=== PATIENT | male | born 1945 | race Caucasian/White ===

== ENCOUNTER 2017-02-08 20:22 | Observation (INO) ==
[2017-02-08] MEDS ORDERED: IOPAMIDOL 100 ML BOTTLE IV ONE (20:23)
[2017-02-08] MEDS ORDERED: METOPROLOL TARTRATE 5 MG/5 ML VIAL IV ONE (20:26)
[2017-02-08] MEDS ORDERED: ONDANSETRON 4 MG/2 ML VIAL IV ONE (20:26)
[2017-02-08] MEDS ORDERED: ASPIRIN 81 MG TAB.CHEW CHEWED ONE (20:26)
[2017-02-08] MEDS: 0.9 % SODIUM CHLORIDE 1,000 ML IV ONE ×2 (20:30→21:03)
[2017-02-08] MEDS ORDERED: MIDAZOLAM 2 MG/2 ML VIAL ONE (20:32)
[2017-02-08] MEDS ORDERED: fentaNYL 100 MCG/2 ML VIAL IV ONE ×2 (20:32→21:18)
[2017-02-08] MEDS ORDERED: DILTIAZEM 25 MG/5 ML VIAL IV ONE ×2 (20:49)
[2017-02-08] MEDS ORDERED: DILTIAZEM 125 MG in 0.9 % SODIUM CHLORIDE 100 ML IV SCH (21:00)
[2017-02-08 21:04] LABS: Basophils # (Auto) 0 K/mcL (0.0-0.3); Basophils % (Auto) 0.3 % (0.0-2.0); Eosinophils # (Auto) 0.2 K/mcL (0.0-0.7); Eosinophils % (Auto) 2.1 % (0.0-7.0); Granulocytes % (Auto) 54.4 % (38.0-78.0); Lymphocytes # (Auto) 3.6 K/mcL (1.5-4.8); Lymphocytes % (Auto) 35.6 % (15.5-49.0); Mean Cell Volume 85.9 fL (80.0-100.0); Mean Corpuscular Hemoglobin 29.2 pg (26.0-34.0); Monocytes # (Auto) 0.8 K/mcL (0.1-0.9); Monocytes % (Auto) 7.6 % (1.0-12.0); Platelet Count 284 K/mcL (140-440); RBC 4.86 M/mcL (4.50-5.90); Red Cell Distribution Width 11.9 % (11.5-14.5)
[2017-02-08] MEDS ORDERED: 0.9 % SODIUM CHLORIDE 1,000 ML IV ONE (21:14)
[2017-02-08] MEDS ORDERED: INSULIN REGULAR, HUMAN 1 UNIT/0.01 ML UNIT IV ONE ×3 (21:14→23:00)
[2017-02-08] MEDS ORDERED: PROPOFOL 200 MG/20 ML VIAL IV ONE (21:15)
[2017-02-08] MEDS ORDERED: MIDAZOLAM 5 MG/5 ML VIAL IV ONE (21:18)
[2017-02-08 21:25] LABS: Creatine Kinase MB 2.6 ng/ml (0-4.9); Myoglobin 42 ng/ml (28-72)
[2017-02-08 21:27] LABS: ALT/SGPT 16 U/l (0-40); Albumin 3.9 gm/dL (3.2-5.2); Albumin/Globulin Ratio 1.6 (1.0-2.3); Alkaline Phosphatase 101 U/L (39-117); Blood Urea Nitrogen 23 mg/dl (8-23); Creatine Kinase 91 IU/L (24-195); Lipase 103 U/L (7-60)
--- NOTE | 2017-02-08 21:32 | Emergency Department Note ---
Chest Pain HPI - General Chief Complaint: Chest Pain Stated Complaint: Chest pain/rapid hr Time Seen by Provider: 02/08/17 20:26 Source: patient, family Mode of arrival: ambulatory Limitations: no limitations - History of Present Illness HPI Narrative: 71-year-old male with a 1 hour history of racing heart shortness of breath fatigue and chest pressure like a constriction around his chest. No history of previous atrial fibrillation but he does report a much milder episode last night lasted much more briefly and then went away. He took a full aspirin both yesterday and today. He does have sleep apnea but does not use his CPAP now for about 9 months. His diabetes has been much more poorly controlled with sugars over 200 lately for unclear reasons. He has some peripheral neuropathy from this. - Related Data Home Medications Medication Instructions Recorded Confirmed metFORMIN HCL [Metformin HCl ER] 500 mg PO BID 12/19/15 12/19/15 Previous Rx's Medication Instructions Recorded HYDROcodone/APAP 5/325MG [[place] 1 - 2 tab PO Q4HP PRN #20 tablet 12/19/15 5/325Mg] Allergies Allergy/AdvReac Type Severity Reaction Status Date / Time No Known Drug Allergies Allergy Verified 02/08/17 20:22 Review of Systems All systems ED: reviewed and negative except as stated. Chest Pain PMH - Past Medical History Attestation: Yes: The following information was validated with the patient. Medical history: Reports: diabetes, other (Sleep apnea) Surgical history ED: Reports: cholecystectomy, orthopedic, other (ankle), other (cyst drained from kidney) Prior Cardiac Testing/Procedures: Echocardiogram, Stress Test (echo and stress test at [facility]) - Social History smoking status: Never smoker Alcohol use: Reports: Rarely Drug use: Reports: none Physical Exam Overweight male in some acute distress secondary to racing heart-heart rate 175 on initial eval. slightly diaphoretic with some shortness of breath. Better with reclining rest. Diaphoretic. Normocephalic atraumatic. Conjunctive are bilaterally injected and icteric. No nasal discharge or congestion. Oropharynx is pink and moist. Mallampati 4. Large neck but no carotid bruit. No lymphadenopathy. Supple. I cannot feel the thyroid. Heart is irregularly irregular rhythm racing tachycardic. Lungs are clear to auscultation bilaterally without wheezes rales rhonchi or respiratory distress. Abdomen soft nontender nondistended. No pedal edema. +2 radial pulse bounding. Alert oriented able to answer questions appropriately After spontaneous cardioversion on Cardizem drip (after failed electrical cardioversion) he was feeling much better and did not recall earlier events - General Limitations: no limitations Course Vital Signs Temperature 97.5 F 02/08/17 20:22 Pulse Rate 170 H 02/08/17 20:22 Respiratory Rate 18 02/08/17 20:22 Blood Pressure 157/122 02/08/17 20:22 Pulse Oximetry (%) 96 02/08/17 20:22 Temperature 97.5 F 02/08/17 20:22 Pulse Rate 81 02/09/17 00:23 Respiratory Rate 13 02/09/17 00:23 Blood Pressure 135/68 02/09/17 00:16 Pulse Oximetry (%) 97 02/09/17 00:23 Procedures - Cardioversion Pre-Shock Diagnosis: Atrial fibrillation with rapid ventricular response-new onset and unstable Post-Shock Diagnosis: Atrial fibrillation with rapid ventricular response Sedation performed by: ED Provider Joules - First Synchronized Shock: 50 Joules - Second Synchronized Shock: 125 (Electrocardioversion unsuccessful) - Procedural Sedation Indication: other (Electrocardioversion) Presedation Evaluation: yes- see exam ASA Class: II Time of Last PO Intake: 03:30 (About 5 hours prior to arrival) Preparation: cardiac catheterization technician applied, pulse oximeter, supplemental O2 applied, reversal agents at bedside, suction/airway equipment at bedside, IV secured Fentanyl: IV Fentanyl Dose: 1 (100 mcg) Midazolam: IV Midazolam Dose: 3 IV Propofol Dose (mgs): 50 Patient Tolerated Procedure: well, no complications Complications: none Interventions: oxygen applied Chest Pain - Lab Data Lab results reviewed: Yes I reviewed the patient's lab results. Result diagrams: 02/08/17 20:30 02/08/17 20:30 Lab Results 02/08/17 02/08/17 02/08/17 Range/Units 20:30 20:30 20:30 WBC 10.0 (4.5-11.0) K/mcL RBC 4.86 (4.50-5.90) M/mcL Hgb 14.2 (13.5-16.5) g/dL Hct 41.7 (41.0-55.0) % POC Hct 43.0 (41.0-55.0) % MCV 85.9 (80.0-100.0) fL MCH 29.2 (26.0-34.0) pg MCHC 34.0 (31.0-36.0) g/dL RDW 11.9 (11.5-14.5) % Plt Count 284 (140-440) K/mcL MPV 8.7 (7.4-10.4) fL Gran % 54.4 (38.0-78.0) % Lymph % (Auto) 35.6 (15.5-49.0) % Coleman % (Auto) 7.6 (1.0-12.0) % Eos % (Auto) 2.1 (0.0-7.0) % Baso % (Auto) 0.3 (0.0-2.0) % Gran # 5.4 (1.8-8.0) K/mcL Lymph # (Auto) 3.6 (1.5-4.8) K/mcL Coleman # (Auto) 0.8 (0.1-0.9) K/mcL Eos # (Auto) 0.2 (0.0-0.7) K/mcL Baso # (Auto) 0 (0.0-0.3) K/mcL POC Sodium 136 (133-145) mmol/L Sodium 135 (133-145) mmol/L POC Potassium 3.6 (3.3-5.1) mmol/L Potassium 3.6 (3.3-5.1) mmol/L POC Chloride 100 (96-108) mmol/L Chloride 96 (96-108) mmol/L Carbon Dioxide 21 L (22-30) mmol/L POC Total CO2 23 (22-30) mmol/L Anion Gap 18.0 H (8-16) POC BUN 26 H (8-23) mg/dl BUN 23 (8-23) mg/dl Creatinine 1.0 (0.7-1.2) mg/dl POC Creatinine 1.0 (0.7-1.2) mg/dl GFR Calculation 74 Glucose 390 H (70-105) mg/dL POC Glucose 381 H (70-105) mg/dL Hemoglobin A1c (4.0-6.0) % HGB Estim Average Glucose mg/dL Calcium 9.0 (8.6-10.4) mg/dl POC WB Ioniz Calcium 1.16 (1.16-1.32) mmol/L Magnesium (1.6-2.5) mg/dL Total Bilirubin 0.3 (0.0-1.0) mg/dL AST 13 (0-37) U/l ALT 16 (0-40) U/l Alkaline Phosphatase 101 (39-117) U/L Total Creatine Kinase 91 (24-195) IU/L CK-MB (CK-2) 2.6 (0-4.9) ng/ml Myoglobin 42 (28-72) ng/ml Troponin T < 0.01 (0-0.03) ng/ml Total Protein 6.4 (5.9-8.4) gm/dL Albumin 3.9 (3.2-5.2) gm/dL Globulin 2.5 (2.2-3.7) gm/dL Albumin/Globulin Ratio 1.6 (1.0-2.3) Lipase 103 H (7-60) U/L TSH (0.27-5.01) uIU/ml 02/08/17 02/08/17 02/08/17 Range/Units 20:30 20:30 23:45 WBC (4.5-11.0) K/mcL RBC (4.50-5.90) M/mcL Hgb (13.5-16.5) g/dL Hct (41.0-55.0) % POC Hct 37.0 L (41.0-55.0) % MCV (80.0-100.0) fL MCH (26.0-34.0) pg MCHC (31.0-36.0) g/dL RDW (11.5-14.5) % Plt Count (140-440) K/mcL MPV (7.4-10.4) fL Gran % (38.0-78.0) % Lymph % (Auto) (15.5-49.0) % Coleman % (Auto) (1.0-12.0) % Eos % (Auto) (0.0-7.0) % Baso % (Auto) (0.0-2.0) % Gran # (1.8-8.0) K/mcL Lymph # (Auto) (1.5-4.8) K/mcL Coleman # (Auto) (0.1-0.9) K/mcL Eos # (Auto) (0.0-0.7) K/mcL Baso # (Auto) (0.0-0.3) K/mcL POC Sodium 137 (133-145) mmol/L Sodium (133-145) mmol/L POC Potassium 3.9 (3.3-5.1) mmol/L Potassium (3.3-5.1) mmol/L POC Chloride 102 (96-108) mmol/L Chloride (96-108) mmol/L Carbon Dioxide (22-30) mmol/L POC Total CO2 23 (22-30) mmol/L Anion Gap (8-16) POC BUN 24 H (8-23) mg/dl BUN (8-23) mg/dl Creatinine (0.7-1.2) mg/dl POC Creatinine 0.8 (0.7-1.2) mg/dl GFR Calculation Glucose (70-105) mg/dL POC Glucose 273 H (70-105) mg/dL Hemoglobin A1c 8.5 H (4.0-6.0) % HGB Estim Average Glucose 197 mg/dL Calcium (8.6-10.4) mg/dl POC WB Ioniz Calcium 1.11 L (1.16-1.32) mmol/L Magnesium 1.6 (1.6-2.5) mg/dL Total Bilirubin (0.0-1.0) mg/dL AST (0-37) U/l ALT (0-40) U/l Alkaline Phosphatase (39-117) U/L Total Creatine Kinase (24-195) IU/L CK-MB (CK-2) (0-4.9) ng/ml Myoglobin (28-72) ng/ml Troponin T (0-0.03) ng/ml Total Protein (5.9-8.4) gm/dL Albumin (3.2-5.2) gm/dL Globulin (2.2-3.7) gm/dL Albumin/Globulin Ratio (1.0-2.3) Lipase (7-60) U/L TSH 2.52 (0.27-5.01) uIU/ml 02/08/17 Range/Units 23:45 WBC (4.5-11.0) K/mcL RBC (4.50-5.90) M/mcL Hgb (13.5-16.5) g/dL Hct (41.0-55.0) % POC Hct (41.0-55.0) % MCV (80.0-100.0) fL MCH (26.0-34.0) pg MCHC (31.0-36.0) g/dL RDW (11.5-14.5) % Plt Count (140-440) K/mcL MPV (7.4-10.4) fL Gran % (38.0-78.0) % Lymph % (Auto) (15.5-49.0) % Coleman % (Auto) (1.0-12.0) % Eos % (Auto) (0.0-7.0) % Baso % (Auto) (0.0-2.0) % Gran # (1.8-8.0) K/mcL Lymph # (Auto) (1.5-4.8) K/mcL Coleman # (Auto) (0.1-0.9) K/mcL Eos # (Auto) (0.0-0.7) K/mcL Baso # (Auto) (0.0-0.3) K/mcL POC Sodium (133-145) mmol/L Sodium (133-145) mmol/L POC Potassium (3.3-5.1) mmol/L Potassium (3.3-5.1) mmol/L POC Chloride (96-108) mmol/L Chloride (96-108) mmol/L Carbon Dioxide (22-30) mmol/L POC Total CO2 (22-30) mmol/L Anion Gap (8-16) POC BUN (8-23) mg/dl BUN (8-23) mg/dl Creatinine (0.7-1.2) mg/dl POC Creatinine (0.7-1.2) mg/dl GFR Calculation Glucose (70-105) mg/dL POC Glucose (70-105) mg/dL Hemoglobin A1c (4.0-6.0) % HGB Estim Average Glucose mg/dL Calcium (8.6-10.4) mg/dl POC WB Ioniz Calcium (1.16-1.32) mmol/L Magnesium (1.6-2.5) mg/dL Total Bilirubin (0.0-1.0) mg/dL AST (0-37) U/l ALT (0-40) U/l Alkaline Phosphatase (39-117) U/L Total Creatine Kinase (24-195) IU/L CK-MB (CK-2) (0-4.9) ng/ml Myoglobin (28-72) ng/ml Troponin T < 0.01 (0-0.03) ng/ml Total Protein (5.9-8.4) gm/dL Albumin (3.2-5.2) gm/dL Globulin (2.2-3.7) gm/dL Albumin/Globulin Ratio (1.0-2.3) Lipase (7-60) U/L TSH (0.27-5.01) uIU/ml - Radiology Data Radiology results reviewed: Yes I reviewed the patient's radiology results. CT angiogram of the chest was read as normal - EKG Data EKG attestation: Yes I reviewed and interpreted this EKG. EKG results narrative: First EKG shows rate of 165 with atrial fibrillation RVR repolarization abnormalities. After synchronized cardioversion with 50 J EKG #2 shows a rate of 164 again with atrial fibrillation and rapid ventricular response After synchronized cardioversion #2 with 125 J EKG #3 continues to show atrial fibrillation with rapid ventricular response Spontaneous cardioversion on EKG #4 with normal sinus rhythm rate of 85 Q waves in V2 and III at 9:25 PM-this was after starting Cardizem drip Disposition Pt seen by RING CUTTER LATHE OPERATOR/PA only: No Clinical Impression: Atrial fibrillation with rapid ventricular response Chest pain Qualifiers: Chest pain type: unspecified Qualified Code(s): R07.9 - Chest pain, unspecified Hyperglycemia due to type 2 diabetes mellitus Qualifiers: Diabetes mellitus improvement coordinator insulin use: without halfway use Qualified Code(s ): E11.65 - Type 2 diabetes mellitus with hyperglycemia Summary: Patient was seen initially brought back secondary to chest pain/pressure with shortness of breath, mild diaphoresis and tachycardia. Found to have atrial fibrillation with rapid ventricular response. Because of instability and new onset in the last hour cardioversion was undertook. He was given metoprolol 5 mg while we were preparing with no effect. synchronized electrical cardioversion under procedural sedation was unsuccessful 2. So Cardizem drip was started. He spontaneously converted sometime after this approximately 9:25 PM Laboratory workup and CT angiogram were ordered He was given 5 units of regular insulin for elevated glucose. A1c was ordered- 8.5. he was given another 3 units of IV insulin. See nursing notes for Accu-Chek 's Discussed his case with Dr. Pyle the web ui designer hotel controller at [facility]. he felt that this could be managed here and patient should be anticoagulated. we repeated his chemistry with a Chem-8 and checked a repeat troponin which was negative The case was also discussed with Dr. Bustos agreed to accept the patient for further care and evaluation. Lovenox was ordered 1 mg/kg for anticoagulation Disposition: Xfer As Inpt ([facility]) Condition: Fair Referrals: Abelardo Gary DO [Primary Care Provider] -
--- NOTE | 2017-02-08 21:53 | Emergency Department Note ---
Chest Pain HPI - General Chief Complaint: Chest Pain Stated Complaint: Chest pain/rapid hr Time Seen by Provider: 02/08/17 20:26 Source: patient, family Mode of arrival: ambulatory Limitations: no limitations - Related Data Home Medications Medication Instructions Recorded Confirmed metFORMIN HCL [Metformin HCl ER] 500 mg PO BID 12/19/15 12/19/15 Previous Rx's Medication Instructions Recorded HYDROcodone/APAP 5/325MG [[place] 1 - 2 tab PO Q4HP PRN #20 tablet 12/19/15 5/325Mg] Allergies Allergy/AdvReac Type Severity Reaction Status Date / Time No Known Drug Allergies Allergy Verified 02/08/17 20:22 Chest Pain PMH - Past Medical History Medical history: Reports: diabetes, other (Sleep apnea) Prior Cardiac Testing/Procedures: Echocardiogram, Stress Test (echo and stress test at [facility]) - Social History smoking status: Never smoker Alcohol use: Reports: Rarely Drug use: Reports: none Physical Exam - General Limitations: no limitations Course Course Narrative: I assisted in the cardioversion by giving the synchronized shocks. We gave one shock at 50J with no results. We gave more sedation and gave a shock of 125J with conversion for about 3 seconds. After that he was started on a Cardizem drip. Vital Signs Temperature 97.5 F 02/08/17 20:22 Pulse Rate 170 H 02/08/17 20:22 Respiratory Rate 18 02/08/17 20:22 Blood Pressure 157/122 02/08/17 20:22 Pulse Oximetry (%) 96 02/08/17 20:22 Temperature 97.5 F 02/08/17 20:22 Pulse Rate 86 02/08/17 21:36 Respiratory Rate 17 02/08/17 21:41 Blood Pressure 114/97 02/08/17 21:41 Pulse Oximetry (%) 95 02/08/17 21:36 Chest Pain - Lab Data Result diagrams: 02/08/17 20:30 02/08/17 20:30 Lab Results 02/08/17 02/08/17 02/08/17 Range/Units 20:30 20:30 20:30 WBC 10.0 (4.5-11.0) K/mcL RBC 4.86 (4.50-5.90) M/mcL Hgb 14.2 (13.5-16.5) g/dL Hct 41.7 (41.0-55.0) % POC Hct 43.0 (41.0-55.0) % MCV 85.9 (80.0-100.0) fL MCH 29.2 (26.0-34.0) pg MCHC 34.0 (31.0-36.0) g/dL RDW 11.9 (11.5-14.5) % Plt Count 284 (140-440) K/mcL MPV 8.7 (7.4-10.4) fL Gran % 54.4 (38.0-78.0) % Lymph % (Auto) 35.6 (15.5-49.0) % Desha % (Auto) 7.6 (1.0-12.0) % Eos % (Auto) 2.1 (0.0-7.0) % Baso % (Auto) 0.3 (0.0-2.0) % Gran # 5.4 (1.8-8.0) K/mcL Lymph # (Auto) 3.6 (1.5-4.8) K/mcL Desha # (Auto) 0.8 (0.1-0.9) K/mcL Eos # (Auto) 0.2 (0.0-0.7) K/mcL Baso # (Auto) 0 (0.0-0.3) K/mcL POC Sodium 136 (133-145) mmol/L Sodium 135 (133-145) mmol/L POC Potassium 3.6 (3.3-5.1) mmol/L Potassium 3.6 (3.3-5.1) mmol/L POC Chloride 100 (96-108) mmol/L Chloride 96 (96-108) mmol/L Carbon Dioxide 21 L (22-30) mmol/L POC Total CO2 23 (22-30) mmol/L Anion Gap 18.0 H (8-16) POC BUN 26 H (8-23) mg/dl BUN 23 (8-23) mg/dl Creatinine 1.0 (0.7-1.2) mg/dl POC Creatinine 1.0 (0.7-1.2) mg/dl GFR Calculation 74 Glucose 390 H (70-105) mg/dL POC Glucose 381 H (70-105) mg/dL Calcium 9.0 (8.6-10.4) mg/dl POC WB Ioniz Calcium 1.16 (1.16-1.32) mmol/L Total Bilirubin 0.3 (0.0-1.0) mg/dL AST 13 (0-37) U/l ALT 16 (0-40) U/l Alkaline Phosphatase 101 (39-117) U/L Total Creatine Kinase 91 (24-195) IU/L CK-MB (CK-2) 2.6 (0-4.9) ng/ml Myoglobin 42 (28-72) ng/ml Troponin T < 0.01 (0-0.03) ng/ml Total Protein 6.4 (5.9-8.4) gm/dL Albumin 3.9 (3.2-5.2) gm/dL Globulin 2.5 (2.2-3.7) gm/dL Albumin/Globulin Ratio 1.6 (1.0-2.3) Lipase 103 H (7-60) U/L Disposition Pt seen by MATERNAL FETAL PHYSICIAN/PA only: No Clinical Impression: Atrial fibrillation with rapid ventricular response Chest pain Qualifiers: Chest pain type: unspecified Qualified Code(s): R07.9 - Chest pain, unspecified Hyperglycemia due to type 2 diabetes mellitus Qualifiers: Diabetes mellitus moth exterminator insulin use: without retirement use Qualified Code(s ): E11.65 - Type 2 diabetes mellitus with hyperglycemia Referrals: Abelardo Gary DO [Primary Care Provider] -
[2017-02-08 23:55] LABS: Hemoglobin A1C 8.5 % HGB (4.0-6.0)
[2017-02-09 00:48] LABS: Magnesium 1.6 mg/dL (1.6-2.5)
[2017-02-09] MEDS ORDERED: IOPAMIDOL 150 ML BOTTLE IJ ONE (01:26)
[2017-02-09] MEDS ORDERED: IPRATROPIUM/ALBUTEROL 3 ML AMPUL.NEB NEB PRN (01:37)
[2017-02-09] MEDS ORDERED: MAGNESIUM SULFATE 2 GM/50 ML BAG IV ONE ×2 (01:37→02:09)
[2017-02-09] MEDS ORDERED: DEXTROSE 31 GM ORAL.SUSP PO PRN (01:37)
[2017-02-09] MEDS ORDERED: ONDANSETRON 4 MG/2 ML VIAL IV PRN (01:37)
[2017-02-09] MEDS ORDERED: ACETAMINOPHEN 325 MG TABLET PO PRN (01:37)
[2017-02-09] MEDS ORDERED: HYDROcodone/APAP 5/325MG TABLET PO PRN (01:37)
[2017-02-09] MEDS ORDERED: NALOXONE HCL 0.4 MG/ML VIAL IV PRN (01:37)
[2017-02-09] MEDS ORDERED: METOPROLOL TARTRATE 5 MG/5 ML VIAL IV PRN (01:37)
[2017-02-09] MEDS ORDERED: DEXTROSE 50% 50 ML VIAL IV PRN (01:37)
[2017-02-09] MEDS ORDERED: ENOXAPARIN 40 MG/0.4 ML SYRINGE ONE (01:52)
[2017-02-09] MEDS ORDERED: ENOXAPARIN 100 MG/ML SYRINGE ONE (01:52)
--- NOTE | 2017-02-09 02:23 | Internal Med History&Physical ---
Medical - H&P: HPI Patient information: Note initiated : 02/09/17 at 2:18 am Service Date, if different from initiated Date: [] Patient: Chico Brown a 71 y/o M admitted on 02/09/17 for Chest pain/rapid hr. Chief Complaint: [] History of present illness: Mr. Brown is a 71 year old Male with h/o DM, obesity and KELLY presented to the ER with complaitns of chest pain and tightness Patient was watching tv when he had sundden onset chest tightness, retrosternal , some preessure and pain between the shoulder blades. He noted that his heart was erratic, the aptient took the Heart rate and his pulse was high and erratic, the patient symptoms was accopanied by light headness, he was flushed and mildly nauseaus. The patient therefore presented to the ER for further management In the ER he was noted to be in afib with rvr, he was given cardizem and cardioverted x 2. After which he was placed on cardizem drip. The patietn then resverted back to sinus rhythm. 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 Cardiology at [facility] was called who advised that patient be monitored here and that there was no indication for transfer. The patient was therefore admitted to the hospital for further management. The patient has h/o cardaic murmur and has a neg stress test 2 yrs ago as per him. 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, lives with Medical - H&P: Meds Home Medications Medication Instructions Recorded Confirmed Type HYDROcodone/APAP 5/325MG [[place] 1 - 2 tab PO Q4HP PRN #20 tablet 12/19/15 Rx 5/325Mg] metFORMIN HCL [Metformin HCl ER] 500 mg PO BID 12/19/15 02/09/17 History Allergies Allergy/AdvReac Type Severity Reaction Status Date / Time No Known Drug Allergies Allergy Verified 02/08/17 20:22 Medical - H&P: Exam - Constitutional Vitals: Temp Pulse Resp BP Pulse Ox 97.5 F 81 13 135/68 97 02/09/17 01:36 02/09/17 01:36 02/09/17 01:36 02/09/17 01:36 02/09/17 01:36 Exam: GENERAL: The patient is a well-developed, well-nourished in no apparent distress. Is alert and oriented x3. obese VITAL SIGNS: Reviewed and as noted elsewhere. HEENT: Head is normocephalic and atraumatic. Extraocular muscles are intact. Pupils are equal, round, and reactive to light. Nares appeared normal. Mouth appears any without lesions. Mucous membranes are moist. NECK: Normal to inspection, Supple, No lymphadenopathy or thyromegaly. LUNGS: Air entry equal on both sides, no wheezing, crackles or rhonchi noted. No accessory muscles of respiration HEART: Regular rate and rhythm normal, S1 and S2 heard, no Gallop, S3 or Rub Noted, systolic murmur 3/6 in the aortic region. ABDOMEN: Soft, nontender, and nondistended. Positive bowel sounds. No hepatosplenomegaly was noted. large pannus EXTREMITIES: No cyanosis, clubbing, rash, lesions or edema. NEUROLOGIC: Cranial nerves II through XII are grossly intact. Motor and Sensory System Grossly Intact PSYCHIATRIC: Normal affect, Normal Mood. Appropriate Behavior. SKIN: No ulceration or wounds noted, No jaundice, No rash noted. Medical - H&P: Reslt - Labs CBC & Chem 7: 02/08/17 20:30 02/08/17 20:30 Labs: Short CBC 02/08/17 Range/Units 20:30 WBC 10.0 (4.5-11.0) K/mcL Hgb 14.2 (13.5-16.5) g/dL Hct 41.7 (41.0-55.0) % Plt Count 284 (140-440) K/mcL BMP 02/08/17 20:30 Sodium 135 Potassium 3.6 Chloride 96 Carbon Dioxide 21 L BUN 23 Creatinine 1.0 Glucose 390 H Calcium 9.0 Cardiac Enzymes 02/08/17 02/08/17 02/08/17 Range/Units 20:30 20:30 23:45 Total Creatine Kinase 91 (24-195) IU/L CK-MB (CK-2) 2.6 (0-4.9) ng/ml Troponin T < 0.01 < 0.01 (0-0.03) ng/ml Liver Function 02/08/17 Range/Units 20:30 Total Bilirubin 0.3 (0.0-1.0) mg/dL AST 13 (0-37) U/l ALT 16 (0-40) U/l Alkaline Phosphatase 101 (39-117) U/L Albumin 3.9 (3.2-5.2) gm/dL Medical - H&P: A/P - Narrative A/P Narrative: A/P Afib with rvr DM morbid obesity KELLY Hypomagnesemia Plan Admit to tele, obs status IV cardizem drip for now start on lovenox sq bid. consider eliquis at discharge. (Major risks benefits of the medication discussed, all questions answered.) Get echo start on metoprolol orally in AM and d/c drip once hr remains stable overnight. check a1c, sliding scale insulin for now, hold metformin. check lipid panel replace mg to keep mg >2.0, and K > 4.0 trend trop again in AM DVT on therapeutic anticoagulation Cardiac diabetic diet Full code.
[2017-02-09 05:56] LABS: Basophils # (Auto) 0 K/mcL (0.0-0.3); Basophils % (Auto) 0.6 % (0.0-2.0); Eosinophils # (Auto) 0.3 K/mcL (0.0-0.7); Eosinophils % (Auto) 3.1 % (0.0-7.0); Granulocytes % (Auto) 49.3 % (38.0-78.0); Lymphocytes # (Auto) 3.5 K/mcL (1.5-4.8); Lymphocytes % (Auto) 39.6 % (15.5-49.0); Mean Cell Volume 87.7 fL (80.0-100.0); Mean Corpuscular Hemoglobin 29.8 pg (26.0-34.0); Monocytes # (Auto) 0.7 K/mcL (0.1-0.9); Monocytes % (Auto) 7.4 % (1.0-12.0); Platelet Count 235 K/mcL (140-440); RBC 4.36 M/mcL (4.50-5.90); Red Cell Distribution Width 12.6 % (11.5-14.5)
[2017-02-09 06:50] LABS: ALT/SGPT 13 U/l (0-40); Albumin 3.4 gm/dL (3.2-5.2); Albumin/Globulin Ratio 1.5 (1.0-2.3); Alkaline Phosphatase 80 U/L (39-117); Bilirubin,Direct < 0.2 mg/dL (0.0-0.3); Blood Urea Nitrogen 22 mg/dl (8-23); Gamma Glutamyl Transpeptidase 27 U/L (8-61); HDL Cholesterol 42 mg/dl (>40); LDL Cholesterol,Calculated 93 mg/dl (SEE CHART); Magnesium 2.3 mg/dL (1.6-2.5); Uric Acid 3.9 mg/dL (2.5-8.0)
--- NOTE | 2017-02-09 07:42 | Cat Scan Report ---
CLINICAL INFORMATION: Chest pain COMPARISON: None. TECHNIQUE: 80 cc of Isovue-300 were injected intravenously, and 25 seconds later, 2.5 mm helical slices were obtained from the lung apices through the bases. Following reconstruction, 2.5 mm sagittal, coronal and axial reformations were processed and reviewed at lung, mediastinal and bone windows. 7 mm axial MIPS were also obtained FINDINGS: Pulmonary parenchymal windows show focal scarring in the anterior basilar segment of the left lower lobe and in the right middle lobe. There are no nodules or infiltrates. No effusions. Mediastinal windows show the thoracic aorta and pulmonary arteries are normal in contour and caliber. There is no adenopathy in the mediastinal, hilar or axillary regions. Small amounts of calcification is seen within the aortic valve. The heart is normal in size. There is moderate lipomatous infiltration of the interatrial septum which has increased from [address] Esophagus is unremarkable. Bones and soft tissues the chest wall are normal. IMPRESSION: 1. No acute cardiopulmonary disease evident 2. Lipomatous infiltration of the intra-atrial septum which has increased from abdominal CT 2008 Interpreted and Authenticated by: Bud Peng 02/09/17
[2017-02-09] MEDS: INSULIN LISPRO 1 UNIT/0.01 ML UNIT SQ SCH ×4 (08:16→23:07)
[2017-02-09] MEDS: METOPROLOL SUCCINATE 50 MG TAB.XL.24H PO SCH (08:18)
[2017-02-09] MEDS: POTASSIUM CHLORIDE 20 MEQ PACKET PO SCH (08:18)
[2017-02-09] MEDS: ENOXAPARIN 120 MG/0.8 ML SYRINGE SQ SCH ×2 (08:18→23:07)
[2017-02-09] MEDS ORDERED: ENOXAPARIN 120 MG/0.8 ML SYRINGE SQ SCH (09:00)
[2017-02-09] MEDS: DILTIAZEM 125 MG in 0.9 % SODIUM CHLORIDE 100 ML IV SCH ×2 (11:49→23:02)
[2017-02-09] MEDS: DULoxetine 30 MG CAPSULE PO SCH (12:22)
[2017-02-09 19:13] LABS: Appearance,Urine CLEAR; Bacteria,Urine 0 /hpf (0); Bilirubin,Urine NEG (NEG); Color,Urine YELLOW; Glucose,Urine (UA) >=500 mg/dL (NEG); Leukocyte Esterase,Urine NEG /uL (NEG); Mucus,Urine FEW /hpf (0); Nitrate,Urine NEG (NEG); Protein,Urine NEG (NEG); Specific Gravity,Urine 1.021 (1.000-1.035); Urine Blood >=1.0 mg/dL (<0.03); Urine RBC 86 /hpf (0-1); Urine Squamous Epithelial Cell < 1 /hpf (0-4); Urine WBC 10 /hpf (0-4); Urobilinogen,Urine NEG (NEG)
--- NOTE | 2017-02-09 19:39 | Ultrasound Report ---
CLINICAL INFORMATION: Hematuria COMPARISON: Abdomen CT from 06/23/2007 and renal ultrasound from 07/04/2015 FINDINGS: Both kidneys are moderately enlarged, but unchanged in size: The right is 14.8 x 6 cm and the left is 12 x 5.6 cm. Renal echotexture is normal. Multiple cysts widely disseminated throughout both kidneys, ranging up to 10.7 cm in the lateral right kidney, show modest increase in size since the 2016 renal ultrasound. There is a 2 cm hyperechoic lesion in the lateral inferior pole the left kidney which was not seen on previous study. This appears to be either a solid nodule or a complex hemorrhagic cyst. Urinary bladder volume is 186-cc with 20 cc post void residual. Urinary bladder wall is mildly thickened IMPRESSION: 1. 2 cm hyperechoic mass lateral inferior pole the left kidney new from previous ultrasound. This could represent a complex hemorrhagic cyst or even a solid lesion - such as a small renal cell carcinoma. Suggest: CT IVP. If patient cannot tolerate IV iodinated contrast because of elevated creatinine etc., then suggest abdominal MRI 2. Multiple cysts widely disseminated throughout both kidneys ranging up to 10.7 cm in the lateral mid right kidney. Mild increase from the previous study Interpreted and Authenticated by: Bud Peng 02/09/17
[2017-02-10 05:26] LABS: Basophils # (Auto) 0 K/mcL (0.0-0.3); Basophils % (Auto) 0.6 % (0.0-2.0); Eosinophils # (Auto) 0.3 K/mcL (0.0-0.7); Granulocytes % (Auto) 45.8 % (38.0-78.0); Lymphocytes # (Auto) 3.4 K/mcL (1.5-4.8); Lymphocytes % (Auto) 42.5 % (15.5-49.0); Mean Cell Volume 87.6 fL (80.0-100.0); Mean Corpuscular Hemoglobin 29.8 pg (26.0-34.0); Monocytes # (Auto) 0.6 K/mcL (0.1-0.9); Monocytes % (Auto) 7.1 % (1.0-12.0); Platelet Count 244 K/mcL (140-440); RBC 4.69 M/mcL (4.50-5.90); Red Cell Distribution Width 12.6 % (11.5-14.5)
[2017-02-10 06:07] LABS: ALT/SGPT 13 U/l (0-40); Albumin 3.5 gm/dL (3.2-5.2); Albumin/Globulin Ratio 1.4 (1.0-2.3); Alkaline Phosphatase 67 U/L (39-117); Bilirubin,Direct < 0.2 mg/dL (0.0-0.3); Blood Urea Nitrogen 15 mg/dl (8-23); Gamma Glutamyl Transpeptidase 27 U/L (8-61); Magnesium 1.9 mg/dL (1.6-2.5); Uric Acid 3.2 mg/dL (2.5-8.0)
[2017-02-10] MEDS: INSULIN LISPRO 1 UNIT/0.01 ML UNIT SQ SCH ×3 (08:57→17:20)
[2017-02-10] MEDS: POTASSIUM CHLORIDE 20 MEQ PACKET PO SCH (08:58)
[2017-02-10] MEDS: ENOXAPARIN 120 MG/0.8 ML SYRINGE SQ SCH (08:58)
[2017-02-10] MEDS: DULoxetine 30 MG CAPSULE PO SCH (08:58)
[2017-02-10] MEDS: METOPROLOL SUCCINATE 50 MG TAB.XL.24H PO SCH (08:58)
[2017-02-10] MEDS ORDERED: PNEUMOCOCCAL 23-VAL P-SAC VAC 0.5 ML VIAL IM ONE (10:00)
[2017-02-10] MEDS ORDERED: FLU VACC QS2017-18 36MOS UP/PF 60 MCG/0.5 ML SYRINGE IM ONE (10:00)
--- NOTE | 2017-02-10 12:14 | Cat Scan Report ---
CLINICAL INFORMATION: Hematuria and renal mass COMPARISON: 06/23/07 FINDINGS: Abdomen was first imaged without oral or intravenous contrast. Nonionic contrast was administered. Venous phase images were acquired from the diaphragm to the symphysis pubis. Sagittal and coronal reformats were created. The liver and spleen are normal in size and homogeneous. The gallbladder has been removed. The bile ducts are nondilated. There is no mass or inflammation in the pancreas. The adrenals are normal. There are multiple simple cysts in both kidneys. The largest is located posterior to the right kidney and measures 7.7 x 8.4 x 10.4 cm. The largest cyst in the left kidney is in the upper pole and measures 5.3 x 6.2 cm. There is also a well-circumscribed fat-containing mass in the cortex posteriorly in the lower pole of the left kidney which measures 1.5 x 1.6 cm. This fat-containing mass has enlarged since 2007. At That time it measured 8.5 mm. The cysts have varied in size. Most of them have enlarged but the dominant cyst in the right kidney has remained stable. No suspicious tumor is seen in either kidney. There is no hemorrhage around the margin of the angiomyolipoma in the left kidney. There is no kidney stone or hydronephrosis. There is duplication of the right renal collecting system. The two ureters join at the ureterovesical junction. The prostate is moderately enlarged and less the bladder from the floor the pelvis. Seminal vesicles appear normal. No mass or intraluminal filling defect is seen within the urinary bladder. Patient has a large network of varicose veins deep in the pelvis. Some of them connect with the splenic vein. No ascites is present. There is no adenopathy. Moderate spinal canal stenosis is present at L4-5 due to degenerative changes. Incidentally noted is a benign lipoma in the left rectus femoris muscle at the level of the groin. 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 There is no associated hemorrhage. No evidence of a renal cell carcinoma or bladder cancer Multiple simple cysts in both kidneys Varicose veins in the pelvis Enlarged prostate Interpreted and Authenticated by: Damien Woodward 02/10/17
[2017-02-10] MEDS: DILTIAZEM 125 MG in 0.9 % SODIUM CHLORIDE 100 ML IV SCH (13:37)
--- NOTE | 2017-02-10 17:52 | Discharge Summary ---
Medical - DS: Prov Patient information: Note initiated : 02/10/17 at 5:49 pm Service Date, if different from initiated Date: [] Patient: Chico Brown 71 y/o M admitted on 02/09/17 for Chest Pain, Rapid HR /AFib with RVR. Chief Complaint: [] Date of admission: 02/09/17 01:25 Discharge date: 02/10/17 Primary care physician: Abelardo Gary Admitting clinician: Jennifer Bustos Consults: 02/08/17 23:42 Consult to Physician [CONS] Stat Comment: Consulting Provider: Jennifer Bustos Reason For Exam: Physician to Consult 02/10/17 10:46 Consult to Physician [CONS] Routine Comment: Consulting Provider: Gaston Cardona Reason For Exam: Physician to Consult Discharging clinician: Jennifer Bustos Medical - DS: Meds - Discharge Medications Prescriptions: Apixaban [Eliquis] 5 mg PO BID #60 tab Metoprolol Succinate [Toprol Xl] 50 mg PO DAILY #30 tab.xl.24h Active and Home Medications: Home Medications HYDROcodone/APAP 5/325MG [[place] 5/325Mg] 1 - 2 tab PO Q4HP PRN #20 tablet [Rx Confirmed 02/09/17 Last Taken Unknown] metFORMIN HCL [Metformin HCl ER] 500 mg PO BID 12/19/15 [History Confirmed 02/09 Last Taken Unknown] DULoxetine HCL [Cymbalta] 60 mg PO DAILY 02/09/17 [History Confirmed 02/09/17 Last Taken Unknown] Medical - DS: Hosp Hospital course: MMr. Brown is a 71 year old Male with h/o DM, obesity and KELLY presented to the ER with complaints of chest pain and tightness, Patient was watching tv when he had sudden onset chest tightness, retrosternal, some pressure and pain between the shoulder blades. He noted that his heart was erratic, the patient's took the Heart rate and his pulse was high and erratic, the patient symptoms was accompanied by light headiness, he was flushed and mildly nauseas. The patient therefore presented to the ER for further management In the ER he was noted to be in afib with rvr, he was given Cardizem and cardioverted x 2. After which he was placed on cardizem ip. The patient then reverted back to sinus rhythm. 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 Cardiology at [facility] was called who advised that patient be monitored here and that there was no indication for transfer. The patient was therefore admitted to the hospital for further management. The patient has h/o cardiac murmur and has a neg stress test 2 yrs ago as per him. in the hospital he was treated with cardizem drip and switched to po metoprolol 50mg sr. He was anticoagulated with lovenox while in the hospital. At the time of discharge he is being sent of eliquis 5mg twice daily TSh was normal The patient has uncontrolled Diabetes, he has been advised to follow up with his pcp for further management. The rest of the stay in the hospital was uneventful, he has been advised to avoid contact sports and high risk activities while on blood thinners. During the hospital stay the patient had some hematuria, USG done which showed that he had cystic kidneys, and possible mass in the left Kidney, CT kidneys show that the mass was a angiolipoma. none the less the patient has blood stained pants, which is unexplained at this time, seen by urology who advised clinic follow up in 1-2 weeks for cystoscopy. Discharge diagnosis: afib new onset. - Time Spent with Patient Total time spent providing and/or coordinating discharge services: Greater than 30 minutes Medical - DS: Exam - Constitutional Vitals: Vital Signs Temp Pulse Resp BP BP BP Pulse Ox 02/10/17 16:00 98.2 F 20 164/92 94 02/10/17 11:08 98.0 F 20 150/90 94 02/10/17 08:00 74 18 145/61 02/10/17 04:00 98.9 F 16 134/71 94 02/09/17 23:32 99.2 F H 66 16 147/90 95 02/09/17 20:00 98.5 F 75 16 162/87 97 02/09/17 18:39 74 95 Intake and Output 02/10/17 02/10/17 02/10/17 05:59 13:59 21:59 Intake Total 200 / 200 1660 / 1660 Output Total 700 / 700 950 / 950 500 / 500 Balance -500 / -500 710 / 710 -500 / -500 Intake: Oral 200 / 200 1660 / 1660 Output: Void Amount 700 / 700 950 / 950 500 / 500 Other: Meal Lunch Percent of Meal Consumed 100% Feeding Ability Independent Additional comments: Constitutional; Afebrile, cooperative, alert, not in distress. Eyes- No icterus, , No periorbital swelling Ears- Ext ear normal, hearing normal to conversation. Neck- Midline trachea, supple Respiratory system: Air Entry equal on both sides, No crackles or wheezing, no rhonchi. CVS- Rate rhythm regular, S1,S2 heard, no gallop, no rub. Abdomen- Soft nontender abdomen, no organomegaly, no tenderness, no guarding or rigidity, [employer]- AOOx3, moving all extremities, no gross focal deficit noted. Medical - DS: Data Procedures and tests throughout hospitalization: CT angio chest IMPRESSION: 1. No acute cardiopulmonary disease evident 2. Lipomatous infiltration of the intra-atrial septum which has increased from abdominal CT 2007 Renal Sonogram IMPRESSION: 1. 2 cm hyperechoic mass lateral inferior pole the left kidney new from previous ultrasound. This could represent a complex hemorrhagic cyst or even a solid lesion - such as a small renal cell carcinoma. Suggest: CT IVP. If patient cannot tolerate IV iodinated contrast because of elevated creatinine etc., then suggest abdominal MRI 2. Multiple cysts widely disseminated throughout both kidneys ranging up to 10.7 cm in the lateral mid right kidney. 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 There is no associated hemorrhage. No evidence of a renal cell carcinoma or bladder cancer Multiple simple cysts in both kidneys Varicose veins in the pelvis Enlarged prostate Labs on day of discharge: Labs from last 24 hours 02/10/17 02/10/17 02/09/17 03:30 03:30 17:13 WBC 8.0 RBC 4.69 Hgb 14.0 Hct 41.1 MCV 87.6 MCH 29.8 MCHC 34.0 RDW 12.6 Plt Count 244 MPV 8.5 Gran % 45.8 Lymph % (Auto) 42.5 Granite % (Auto) 7.1 Eos % (Auto) 4.0 Baso % (Auto) 0.6 Gran # 3.7 Lymph # (Auto) 3.4 Granite # (Auto) 0.6 Eos # (Auto) 0.3 Baso # (Auto) 0 Sodium 140 Potassium 4.1 Chloride 104 Carbon Dioxide 25 Anion Gap 11.0 BUN 15 Creatinine 0.7 GFR Calculation 94 Glucose 183 H Uric Acid 3.2 Calcium 8.6 Phosphorus 3.1 Magnesium 1.9 Total Bilirubin 0.4 Direct Bilirubin < 0.2 GGT 27 AST 12 ALT 13 Alkaline Phosphatase 67 Lactate Dehydrogenase 147 Total Protein 6.0 Albumin 3.5 Globulin 2.5 Albumin/Globulin Ratio 1.4 Triglycerides 144 Urine Color Yellow Urine Appearance Clear Urine pH 5.0 Ur Specific [place] 1.021 Urine Protein Neg Urine Glucose (UA) >=500 A Urine Ketones Neg Urine Occult Blood >=1.0 A Urine Nitrate Neg Urine Bilirubin Neg Urine Urobilinogen Neg Ur Leukocyte Esterase Neg Urine RBC 86 H Urine WBC 10 H Ur Squamous Epith Cells < 1 Urine Bacteria 0 Urine Mucus Few Ur Culture Indicated? Yes Preliminary micro results at discharge 02/09/17 17:31 Urine Culture - Preliminary Urine - Clean Void [facility] - DS: A/P - Patient/Caregiver Discharge Instructions Activity: increase activity as tolerated Diet: Cardiac, Consistent Carbohydrate Additional Instructions: Follow up with PCP in 1 week Follow up with urology in 2 weeks Go to the ER if bleeding, black stools, dizziness or uncontrolled heart rate or chest pains. Take medications as prescribed Avoid high risk activity, avoid nsaids, alleve motrin as it can incrase risk of bleeding no aspirin as it can increase risk of bleeding unless ok by your doctor. - Follow up Plan Follow up with: Abelardo Gary DO [Primary Care Provider] - 02/18/17 3:00 pm () Gaston Cardona MD [Physician] - Disposition: Home, Self-Care Prognosis: Fair Rehab Potential: Fair I certify that the patient requires SNF services: No Overall status at discharge: patient is back to baseline Medical - DS: Qual - VTE Deep Vein Thrombosis/Pulmonary Embolism Present on Admission: No
--- NOTE | 2017-02-10 19:43 | Consultation ---
DATE OF CONSULTATION: 02/10/2017 DATE: 02/10/2017 HISTORY OF PRESENT ILLNESS: The patient is a 71-year-old gentleman who was admitted to the hospital for an irregular heart rate. He has been noted to have some blood in his underwear and an ultrasound was obtained which showed a questionable mass on the right side of his kidney. The patient does have a history of cysts in the kidney. These have been drained percutaneously but keep recurring. He does have some discomfort on the right side. He denies any gross trauma. I have been asked to evaluate him for hematuria. PAST MEDICAL HISTORY: Significant for atrial fibrillation with rapid ventricular response, type 2 diabetes, obesity. PAST SURGERY: Cholecystectomy, kidney stones. FAMILY HISTORY: Noncontributory. SOCIAL HISTORY: Nonsmoker, occasional ethanol. 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 MEDICATIONS: Please see the patient's chart. REVIEW OF SYSTEMS: Again, please see the patient's chart. PHYSICAL EXAMINATION: GENERAL: This is a very pleasant gentleman in no apparent distress. VITAL SIGNS: Noted as per chart. HEENT: Atraumatic, normocephalic. Extraocular movements are intact. Pupils equal and reactive to light and accommodation. NECK: Supple. LUNGS: Clear to auscultation. HEART: Regular rhythm. ABDOMEN: Soft, nondistended. : Deferred. EXTREMITIES: Without clubbing, cyanosis or edema. NEUROLOGIC: Intact. Cranial nerves II-XII intact. CT scan does show an angiomyolipoma in the lower pole of the right kidney and also a large cyst up to 10 cm on the right side. IMPRESSION: The patient with hematuria in his underwear. This may represent bleeding from the prostate. I have talked to him about this. He says that his last PSA was normal. We will follow up as an outpatient. Would start off with a cystoscopy to make sure everything is normal. We may need to drain the cyst in the right kidney, depending on how he does. I have discussed this with he and his and they understand. We will follow up as an outpatient. JAYNA:phil Job ID: [id number] Doc ID: [id number] Gaston Cardona MD
== END 2017-02-10 18:32 | disposition home or self-care (01) ==
LOC: ED 20:22 → ICU 20:22
PROVIDERS: ADMIT Internal Medicine; ATTEND Internal Medicine